=== PATIENT | male | born 2000 | race Caucasian/White ===

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

== ENCOUNTER 2020-10-06 13:37 | Inpatient (IN) | payer BC, OTHER ==
[2020-10-06 13:54] LABS: Glucose,Whole Blood >600 mg/dL (75-99)
[2020-10-06] MEDS ORDERED: SODIUM CHLORIDE 0.9% 2,000 ML IV ONE (13:55)
--- NOTE | 2020-10-06 14:15 | ED ---
General Adult HPI - General Source: patient, family, RN notes reviewed Mode of arrival: ambulatory Limitations: no limitations <Jun Yusuf - Last Filed: 10/06/20 14:14> <Amol Johnson - Last Filed: 10/06/20 16:02> - General Chief complaint: Shortness of Breath Stated complaint: weakness Time Seen by Provider: 10/06/20 13:55 - History of Present Illness Initial comments: This is a 20-year-old male presents emergency Department chief complaint of abdominal pain, nausea vomiting, increased bleeding. Patient states that he has not been able checked his blood sugar and almost 16 hours. Patient states that he is a type I diabetic. He has never had DKA states is only minimally when his first diagnosed with diabetes. Patient does have an insulin pump on he states feeling himself 4 units of insulin earlier today. Patient states his glucometer read high at this point. Patient states is very thirsty, no sick contacts no reported fever. (Jun Yusuf) - Related Data Home Medications Medication Instructions Recorded Confirmed INSULIN ASPART (NovoLOG) [NovoLOG] See Protocol SQ AC-TID 08/05/16 08/05/16 Insulin Glargine [Lantus] 20 unit SQ DAILY 08/05/16 08/05/16 Naproxen Sodium [Aleve] 220 mg PO DAILY PRN 08/05/16 08/05/16 Previous Rx's Medication Instructions Recorded Polymyxin B-Trimeth Sulf Ophth 1 drops RIGHT EYE Q4H 10 Days ml 08/05/16 [Polytrim Opthalmic] Allergies Allergy/AdvReac Type Severity Reaction Status Date / Time No Known Allergies Allergy Verified 10/06/20 13:46 Review of Systems ROS Other: All systems not noted in ROS Statement are negative. <Jun Yusuf - Last Filed: 10/06/20 14:14> ROS Other: All systems not noted in ROS Statement are negative. <Amol Johnson - Last Filed: 10/06/20 16:02> ROS Statement: Those systems with pertinent positive or pertinent negative responses have been documented in the HPI. Past Medical History Past Medical History: Diabetes Mellitus History of Any Multi-Drug Resistant Organisms: None Reported Past Surgical History: No Surgical Hx Reported Past Anesthesia/Blood Transfusion Reactions: No Reported Reaction Past Psychological History: No Psychological Hx Reported Smoking Status: Current every day smoker Past Alcohol Use History: None Reported, Occasional Past Drug Use History: None Reported - Past Family History Father Family Medical History: No Reported History Additional Family Medical History / Comment(s): Materal Grandmother CAD. Paternal Great Grandfather -DM <Jun Yusuf - Last Filed: 10/06/20 14:14> General Exam Limitations: no limitations General appearance: alert, in no apparent distress Head exam: Present: atraumatic, normocephalic, normal inspection Eye exam: Present: normal appearance, PERRL, EOMI. Absent: scleral icterus, conjunctival injection, periorbital swelling ENT exam: Present: normal exam, normal oropharynx, mucous membranes moist Neck exam: Present: normal inspection, full ROM. Absent: tenderness, meningismus, lymphadenopathy Respiratory exam: Present: normal lung sounds bilaterally. Absent: respiratory distress, wheezes, rales, rhonchi, stridor Cardiovascular Exam: Present: normal rhythm, tachycardia, normal heart sounds. Absent: regular rate, systolic murmur, diastolic murmur, rubs, gallop, clicks GI/Abdominal exam: Present: soft, tenderness, normal bowel sounds. Absent: distended, guarding, rebound, rigid Neurological exam: Present: alert Skin exam: Present: warm, dry, intact, normal color. Absent: rash <Jun Yusuf - Last Filed: 10/06/20 14:14> Course Vital Signs 10/06/20 13:46 Temperature 98.3 F Pulse Rate 132 H Respiratory 18 Rate Blood Pressure 120/62 O2 Sat by Pulse 98 Oximetry Medical Decision Making - Lab Data Result diagrams: 10/06/20 14:11 10/06/20 14:11 - Radiology Data Radiology results: image reviewed <Amol Johnson - Last Filed: 10/06/20 16:02> - Medical Decision Making Patient reevaluated and reexamined by myself, Dr. Johnson. Patient and family updated on results and plan. I do agree with PAs findings. This includes diagnostic interpretation and treatment plan. Case was discussed with Dr. Bui, who will admit covering for Dr. Peralta. Dr. Aleman has been paged (Amol Johnson) - Lab Data Lab Results 10/06/20 10/06/20 10/06/20 Range/Units 13:50 14:11 14:11 WBC 32.8 H (3.8-10.6) k/uL RBC 5.22 (4.30-5.90) m/uL Hgb 17.4 (13.0-17.5) gm/dL Hct 51.1 (39.0-53.0) % MCV 98.0 (80.0-100.0) fL MCH 33.3 (25.0-35.0) pg MCHC 34.0 (31.0-37.0) g/dL RDW 12.8 (11.5-15.5) % Plt Count 457 H (150-450) k/uL MPV 8.1 Neutrophils % Not Reportable Neutrophils % (Manual) 82 % Lymphocytes % Not Reportable Lymphocytes % (Manual) 12 % Monocytes % Not Reportable Monocytes % (Manual) 6 % Eosinophils % Not Reportable Basophils % Not Reportable Myelocytes % 1 % Neutrophils # Not Reportable Neutrophils # (Manual) 26.90 H (1.3-7.7) k/uL Lymphocytes # Not Reportable Lymphocytes # (Manual) 3.94 (1.0-4.8) k/uL Monocytes # Not Reportable Monocytes # (Manual) 1.97 H (0-1.0) k/uL Eosinophils # Not Reportable Basophils # Not Reportable Myelocytes # (Manual) 0.33 H (0) k/uL Nucleated RBCs 0 (0-0) /100 WBC Manual Slide Review Performed RBC Morphology Normal VBG pH (7.31-7.41) VBG pCO2 (37-51) mmHg VBG HCO3 (24-28) mmol/L Sodium (137-145) mmol/L Potassium (3.5-5.1) mmol/L Chloride (98-107) mmol/L Carbon Dioxide (22-30) mmol/L Anion Gap mmol/L BUN (9-20) mg/dL Creatinine (0.66-1.25) mg/dL Est GFR (CKD-EPI)AfAm (>60 ml/min/1.73 sqM) Est GFR (CKD-EPI)NonAf (>60 ml/min/1.73 sqM) Glucose (74-99) mg/dL POC Glucose (mg/dL) >600 H (75-99) mg/dL POC Glu Pen Tester Ken Craig Plasma Lactic Acid Bear (0.7-2.0) mmol/L Calcium (8.4-10.2) mg/dL Magnesium (1.6-2.3) mg/dL Total Bilirubin (0.2-1.3) mg/dL AST (17-59) U/L ALT (4-49) U/L Alkaline Phosphatase (38-126) U/L Total Protein (6.3-8.2) g/dL Albumin (3.5-5.0) g/dL Urine Color Light Yellow Urine Appearance Clear (Clear) Urine pH 5.0 (5.0-8.0) Ur Specific [place] 1.026 (1.001-1.035) Urine Protein 1+ H (Negative) Urine Glucose (UA) 4+ H (Negative) Urine Ketones 4+ H (Negative) Urine Blood Negative (Negative) Urine Nitrite Negative (Negative) Urine Bilirubin Negative (Negative) Urine Urobilinogen <2.0 (<2.0) mg/dL Ur Leukocyte Esterase Negative (Negative) Urine RBC <1 (0-5) /hpf Urine WBC 1 (0-5) /hpf Acetone, Qual (Negative) 10/06/20 10/06/20 10/06/20 Range/Units 14:11 14:11 14:11 WBC (3.8-10.6) k/uL RBC (4.30-5.90) m/uL Hgb (13.0-17.5) gm/dL Hct (39.0-53.0) % MCV (80.0-100.0) fL MCH (25.0-35.0) pg MCHC (31.0-37.0) g/dL RDW (11.5-15.5) % Plt Count (150-450) k/uL MPV Neutrophils % Neutrophils % (Manual) % Lymphocytes % Lymphocytes % (Manual) % Monocytes % Monocytes % (Manual) % Eosinophils % Basophils % Myelocytes % % Neutrophils # Neutrophils # (Manual) (1.3-7.7) k/uL Lymphocytes # Lymphocytes # (Manual) (1.0-4.8) k/uL Monocytes # Monocytes # (Manual) (0-1.0) k/uL Eosinophils # Basophils # Myelocytes # (Manual) (0) k/uL Nucleated RBCs (0-0) /100 WBC Manual Slide Review RBC Morphology VBG pH 7.06 L* (7.31-7.41) VBG pCO2 21 L (37-51) mmHg VBG HCO3 6 L* (24-28) mmol/L Sodium 135 L (137-145) mmol/L Potassium 5.8 H (3.5-5.1) mmol/L Chloride 95 L (98-107) mmol/L Carbon Dioxide <5 L* (22-30) mmol/L Anion Gap mmol/L BUN 19 (9-20) mg/dL Creatinine 1.41 H (0.66-1.25) mg/dL Est GFR (CKD-EPI)AfAm 82 (>60 ml/min/1.73 sqM) Est GFR (CKD-EPI)NonAf 71 (>60 ml/min/1.73 sqM) Glucose 577 H* (74-99) mg/dL POC Glucose (mg/dL) (75-99) mg/dL POC Glu Pen Tester ID Plasma Lactic Acid Bear 5.4 H* (0.7-2.0) mmol/L Calcium 10.5 H (8.4-10.2) mg/dL Magnesium 2.1 (1.6-2.3) mg/dL Total Bilirubin 0.9 (0.2-1.3) mg/dL AST 43 (17-59) U/L ALT 31 (4-49) U/L Alkaline Phosphatase 174 H (38-126) U/L Total Protein 8.3 H (6.3-8.2) g/dL Albumin 5.4 H (3.5-5.0) g/dL Urine Color Urine Appearance (Clear) Urine pH (5.0-8.0) Ur Specific [place] (1.001-1.035) Urine Protein (Negative) Urine Glucose (UA) (Negative) Urine Ketones (Negative) Urine Blood (Negative) Urine Nitrite (Negative) Urine Bilirubin (Negative) Urine Urobilinogen (<2.0) mg/dL Ur Leukocyte Esterase (Negative) Urine RBC (0-5) /hpf Urine WBC (0-5) /hpf Acetone, Qual Positive (Negative) Critical Care Time Critical Care Time: Yes Total Critical Care Time: 31 <Amol Johnson - Last Filed: 10/06/20 16:02> Disposition <Jun Yusuf - Last Filed: 10/06/20 14:14> Is patient prescribed a controlled substance at d/c from ED?: No Decision Time: 16:02 <Amol Johnson - Last Filed: 10/06/20 16:02> Clinical Impression: Diabetic ketoacidosis Disposition: ADMITTED IP TO THIS HOSP Condition: Serious Referrals: Lillie Peralta MD [Primary Care Provider] - 1-2 days
[2020-10-06 14:34] LABS: ALT 31 U/L (4-49); AST 43 U/L (17-59); African American GFR (CKD) 82 (>60 ml/min/1.73 sqM); Albumin 5.4 g/dL (3.5-5.0); Alkaline Phosphatase 174 U/L (38-126); Blood Urea Nitrogen 19 mg/dL (9-20); Calcium 10.5 mg/dL (8.4-10.2); Chloride 95 mmol/L (98-107); Magnesium 2.1 mg/dL (1.6-2.3); Non-African American GFR(CKD) 71 (>60 ml/min/1.73 sqM); Potassium 5.8 mmol/L (3.5-5.1); Sodium 135 mmol/L (137-145); Total Bilirubin 0.9 mg/dL (0.2-1.3); Total Protein 8.3 g/dL (6.3-8.2)
[2020-10-06 14:44] LABS: HCT 51.1 % (39.0-53.0); HGB 17.4 gm/dL (13.0-17.5); MCH 33.3 pg (25.0-35.0); Mean Platelet Volume 8.1; Platelet Count 457 k/uL (150-450); RBC 5.22 m/uL (4.30-5.90); RDW 12.8 % (11.5-15.5)
[2020-10-06 14:45] LABS: Appearance,Urine Clear (Clear); Bilirubin,Urine Negative (Negative); Blood,Urine Negative (Negative); Color,Urine Light Yellow; Glucose,Urine (UA) 4+ (Negative); Leukocyte Esterase,Urine Negative (Negative); Nitrite,Urine Negative (Negative); Protein,Urine 1+ (Negative); RBC,Urine <1 /hpf (0-5); Specific Gravity,Urine 1.026 (1.001-1.035); Urobilinogen,Urine <2.0 mg/dL (<2.0); WBC,Urine 1 /hpf (0-5)
[2020-10-06 14:47] LABS: WBC 32.8 k/uL (3.8-10.6)
[2020-10-06 14:50] LABS: Carbon Dioxide <5 mmol/L (22-30); Glucose 577 mg/dL (74-99)
[2020-10-06] MEDS ORDERED: INSULIN REGULAR BOLUS (FROM DRIP BAG) IV ONE (14:50)
[2020-10-06] MEDS ORDERED: ONDANSETRON 4 MG/2 ML VIAL IVP STA (14:50)
[2020-10-06 14:54] LABS: Ketones,Urine 4+ (Negative)
[2020-10-06 15:04] LABS: VBG PH 7.06 (7.31-7.41)
[2020-10-06 15:16] LABS: Lymphocytes # (M) 3.94 k/uL (1.0-4.8); Monocytes # (M) 1.97 k/uL (0-1.0); Myelocytes # (M) 0.33 k/uL (0); Myelocytes % 1 %; Neutrophils % (M) 82 %; Nucleated Red Blood Cells 0 /100 WBC (0-0); Total Cells Counted 200
[2020-10-06] MEDS: INSULIN REGULAR 100 UNIT in SODIUM CHLORIDE 0.9% 100 ML IV SCH (15:20)
[2020-10-06] MEDS: SODIUM CHLORIDE 0.9% 1,000 ML IV SCH (15:24)
[2020-10-06] MEDS ORDERED: NALOXONE 0.4 MG/ML 1 ML VIAL IV PRN (16:04)
--- NOTE | 2020-10-06 16:04 | XR ---
EXAMINATION TYPE: XR chest 1V portable DATE OF EXAM: 10/06/2020 COMPARISON: NONE HISTORY: Nausea and vomiting TECHNIQUE: Single view FINDINGS: Heart and mediastinum are normal. Lungs are clear. Diaphragm is normal. Bony thorax appears normal. IMPRESSION: Normal chest
[2020-10-06] MEDS ORDERED: ONDANSETRON 4 MG/2 ML VIAL IVP PRN (16:05)
[2020-10-06 16:23] LABS: Glucose,Whole Blood 369 mg/dL (75-99)
[2020-10-06 17:18] LABS: Glucose,Whole Blood 268 mg/dL (75-99)
[2020-10-06 17:22] LABS: African American GFR (CKD) >90 (>60 ml/min/1.73 sqM); Blood Urea Nitrogen 17 mg/dL (9-20); Chloride 105 mmol/L (98-107); Glucose 300 mg/dL (74-99); Non-African American GFR(CKD) >90 (>60 ml/min/1.73 sqM); Phosphorus 4.9 mg/dL (2.5-4.5); Potassium 4.6 mmol/L (3.5-5.1); Sodium 136 mmol/L (137-145)
[2020-10-06 17:31] LABS: Carbon Dioxide <5 mmol/L (22-30)
[2020-10-06] MEDS: D5-0.45% NACL WITH KCL 20MEQ/L 1,000 ML IV SCH (17:42)
[2020-10-06 18:28] LABS: Glucose,Whole Blood 229 mg/dL (75-99)
[2020-10-06 19:32] LABS: Glucose,Whole Blood 185 mg/dL (75-99)
[2020-10-06 20:24] LABS: Glucose,Whole Blood 206 mg/dL (75-99)
[2020-10-06 20:33] LABS: African American GFR (CKD) >90 (>60 ml/min/1.73 sqM); Anion Gap 24 mmol/L; Blood Urea Nitrogen 14 mg/dL (9-20); Chloride 106 mmol/L (98-107); Glucose 194 mg/dL (74-99); Non-African American GFR(CKD) >90 (>60 ml/min/1.73 sqM); Phosphorus 2.3 mg/dL (2.5-4.5); Potassium 4.5 mmol/L (3.5-5.1); Sodium 135 mmol/L (137-145)
[2020-10-06 20:34] LABS: Carbon Dioxide 5 mmol/L (22-30)
[2020-10-06 21:12] LABS: Glucose,Whole Blood 185 mg/dL (75-99)
[2020-10-06 22:17] LABS: Glucose,Whole Blood 180 mg/dL (75-99)
[2020-10-06 23:13] LABS: Glucose,Whole Blood 182 mg/dL (75-99)
[2020-10-06 23:41] LABS: Basophils % (A) 0 %; Eosinophils % (A) 0 %; HCT 43.8 % (39.0-53.0); HGB 15.1 gm/dL (13.0-17.5); Lymphocytes % (A) 11 %; MCH 32.5 pg (25.0-35.0); MCHC 34.4 g/dL (31.0-37.0); MCV 94.5 fL (80.0-100.0); Mean Platelet Volume 7.5; Monocytes # (A) 0.8 k/uL (0-1.0); Monocytes % (A) 4 %; Neutrophils # (A) 15.2 k/uL (1.3-7.7); Neutrophils % (A) 83 %; Platelet Count 311 k/uL (150-450); Poikilocytosis Slight; RBC 4.64 m/uL (4.30-5.90); RDW 14.1 % (11.5-15.5); WBC 18.3 k/uL (3.8-10.6)
--- NOTE | 2020-10-06 23:46 | P.HPIM ---
History of Present Illness H&P Date: 10/06/20 Patient is a 20-year-old male with a known history of diabetes type 1 currently on insulin pump, everyday smoker and occasional alcohol use presents to ER with complaints of intractable nausea and vomiting and mild abdominal discomfort. Patient has been diagnosed with diabetes type 1 about 6 years ago. Currently on insulin pump. No history of prior DKA. Patient states that he has been feeling weak for the last couple of weeks and has been having increased thirst and polyuria. Patient has not been able to check his blood sugar and almost 16 hours. Denied any complaints of cough or sputum production. No fever no chills, no Diarrhea. No complaints of chest pain or shortness of breath. Laboratory data showed WBC 32.8, hemoglobin 17.4 and platelets 457 Venous blood gases showed pH 7.06, PCO2 21 and bicarb is six Sodium 135 potassium 5.8 chloride 95 bicarb less than five BUN 19 and creatinine 1.4 Blood sugar is 577 lactic acid 5.4 calcium 10.5 Urinalysis is negative for infection. 4+ glucose and 4+ ketones Chest x-ray showed no acute cardiopulmonary EKG showed sinus tachycardia. Past Medical History Past Medical History: Diabetes Mellitus History of Any Multi-Drug Resistant Organisms: None Reported Past Surgical History: No Surgical Hx Reported Past Anesthesia/Blood Transfusion Reactions: No Reported Reaction Past Psychological History: No Psychological Hx Reported Smoking Status: Current every day smoker Past Alcohol Use History: None Reported, Occasional Past Drug Use History: None Reported - Past Family History Father Family Medical History: No Reported History Additional Family Medical History / Comment(s): Materal Grandmother CAD. Paternal Great Grandfather -DM Medications and Allergies Home Medications Medication Instructions Recorded Confirmed Type Insulin Aspart (For Pump) [NovoLOG 0.01 unit SQ-PUMP CONTINUOUS 10/06/20 10/06/20 History (For Pump)] Allergies Allergy/AdvReac Type Severity Reaction Status Date / Time No Known Allergies Allergy Verified 10/06/20 16:23 Physical Exam Vitals: Vital Signs Temp Pulse Resp BP Pulse Ox 10/06/20 16:35 125 H 21 119/72 100 10/06/20 13:46 98.3 F 132 H 18 120/62 98 Intake and Output 10/06/20 10/06/20 10/06/20 06:59 14:59 22:59 Intake Total 21.538 Balance 21.538 Intake: Intake, IV Titration Amount Insulin Regular 100 unit .538 In Sodium Chloride 0.9% 100 ml @ 0.1 UNITS/KG/HR 8.704 mls/hr IV .[id number] [facility] Rx#:[id number] Other: Weight 86.183 kg Results CBC & Chem 7: 10/06/20 23:19 10/06/20 19:46 Labs: Abnormal Lab Results - Last 24 Hours (Table) 10/06/20 10/06/20 10/06/20 Range/Units 13:50 14:11 14:11 WBC 32.8 H (3.8-10.6) k/uL Plt Count 457 H (150-450) k/uL Neutrophils # (Manual) 26.90 H (1.3-7.7) k/uL Monocytes # (Manual) 1.97 H (0-1.0) k/uL Myelocytes # (Manual) 0.33 H (0) k/uL VBG pH (7.31-7.41) VBG pCO2 (37-51) mmHg VBG HCO3 (24-28) mmol/L Sodium (137-145) mmol/L Potassium (3.5-5.1) mmol/L Chloride (98-107) mmol/L Carbon Dioxide (22-30) mmol/L Creatinine (0.66-1.25) mg/dL Glucose (74-99) mg/dL POC Glucose (mg/dL) >600 H (75-99) mg/dL Plasma Lactic Acid Bear (0.7-2.0) mmol/L Calcium (8.4-10.2) mg/dL Phosphorus (2.5-4.5) mg/dL Alkaline Phosphatase (38-126) U/L Total Protein (6.3-8.2) g/dL Albumin (3.5-5.0) g/dL Urine Protein 1+ H (Negative) Urine Glucose (UA) 4+ H (Negative) Urine Ketones 4+ H (Negative) 10/06/20 10/06/20 10/06/20 Range/Units 14:11 14:11 14:11 WBC (3.8-10.6) k/uL Plt Count (150-450) k/uL Neutrophils # (Manual) (1.3-7.7) k/uL Monocytes # (Manual) (0-1.0) k/uL Myelocytes # (Manual) (0) k/uL VBG pH 7.06 L* (7.31-7.41) VBG pCO2 21 L (37-51) mmHg VBG HCO3 6 L* (24-28) mmol/L Sodium 135 L (137-145) mmol/L Potassium 5.8 H (3.5-5.1) mmol/L Chloride 95 L (98-107) mmol/L Carbon Dioxide <5 L* (22-30) mmol/L Creatinine 1.41 H (0.66-1.25) mg/dL Glucose 577 H* (74-99) mg/dL POC Glucose (mg/dL) (75-99) mg/dL Plasma Lactic Acid Bear 5.4 H* (0.7-2.0) mmol/L Calcium 10.5 H (8.4-10.2) mg/dL Phosphorus (2.5-4.5) mg/dL Alkaline Phosphatase 174 H (38-126) U/L Total Protein 8.3 H (6.3-8.2) g/dL Albumin 5.4 H (3.5-5.0) g/dL Urine Protein (Negative) Urine Glucose (UA) (Negative) Urine Ketones (Negative) 10/06/20 10/06/20 10/06/20 Range/Units 16:21 16:55 16:55 WBC (3.8-10.6) k/uL Plt Count (150-450) k/uL Neutrophils # (Manual) (1.3-7.7) k/uL Monocytes # (Manual) (0-1.0) k/uL Myelocytes # (Manual) (0) k/uL VBG pH (7.31-7.41) VBG pCO2 (37-51) mmHg VBG HCO3 (24-28) mmol/L Sodium 136 L (137-145) mmol/L Potassium (3.5-5.1) mmol/L Chloride (98-107) mmol/L Carbon Dioxide <5 L* (22-30) mmol/L Creatinine (0.66-1.25) mg/dL Glucose 300 H (74-99) mg/dL POC Glucose (mg/dL) 369 H (75-99) mg/dL Plasma Lactic Acid Bear 2.3 H* (0.7-2.0) mmol/L Calcium (8.4-10.2) mg/dL Phosphorus 4.9 H (2.5-4.5) mg/dL Alkaline Phosphatase (38-126) U/L Total Protein (6.3-8.2) g/dL Albumin (3.5-5.0) g/dL Urine Protein (Negative) Urine Glucose (UA) (Negative) Urine Ketones (Negative) 10/06/20 Range/Units 17:17 WBC (3.8-10.6) k/uL Plt Count (150-450) k/uL Neutrophils # (Manual) (1.3-7.7) k/uL Monocytes # (Manual) (0-1.0) k/uL Myelocytes # (Manual) (0) k/uL VBG pH (7.31-7.41) VBG pCO2 (37-51) mmHg VBG HCO3 (24-28) mmol/L Sodium (137-145) mmol/L Potassium (3.5-5.1) mmol/L Chloride (98-107) mmol/L Carbon Dioxide (22-30) mmol/L Creatinine (0.66-1.25) mg/dL Glucose (74-99) mg/dL POC Glucose (mg/dL) 268 H (75-99) mg/dL Plasma Lactic Acid Bear (0.7-2.0) mmol/L Calcium (8.4-10.2) mg/dL Phosphorus (2.5-4.5) mg/dL Alkaline Phosphatase (38-126) U/L Total Protein (6.3-8.2) g/dL Albumin (3.5-5.0) g/dL Urine Protein (Negative) Urine Glucose (UA) (Negative) Urine Ketones (Negative) Assessment and Plan Assessment: Acute diabetic ketoacidosis Intractable nausea vomiting abdominal discomfort Anion gap metabolic acidosis Hyperkalemia secondary acidosis Acute kidney injury likely prerenal Lactic acidosis Significant leukocytosis likely reactive no evidence of infection at this time. Diabetes type 1 currently on insulin pump DVT prophylaxis with early ambulation. Plan: Patient regarding insulin drip at 8 units/h. Continue with IV hydration with normal saline and continue to monitor electrolytes every 4 hours. Symptomatic management for nausea and vomiting. Continue with PPI Chest x-ray and UA negative for infection. Follow-up culture reports. Leukocytosis trending down. Continue to follow closely. Discussed with his family at bedside in detail. Time with Patient: Greater than 30
[2020-10-06 23:59] LABS: Glucose,Whole Blood 166 mg/dL (75-99)
[2020-10-07 00:22] LABS: ALT 24 U/L (4-49); AST 24 U/L (17-59); African American GFR (CKD) >90 (>60 ml/min/1.73 sqM); Albumin 3.9 g/dL (3.5-5.0); Alkaline Phosphatase 91 U/L (38-126); Anion Gap 16 mmol/L; Blood Urea Nitrogen 14 mg/dL (9-20); Calcium 8.9 mg/dL (8.4-10.2); Carbon Dioxide 11 mmol/L (22-30); Chloride 107 mmol/L (98-107); Glucose 184 mg/dL (74-99); Magnesium 2.2 mg/dL (1.6-2.3); Non-African American GFR(CKD) >90 (>60 ml/min/1.73 sqM); Phosphorus 2.2 mg/dL (2.5-4.5); Potassium 4.3 mmol/L (3.5-5.1); Sodium 134 mmol/L (137-145); Total Protein 6.5 g/dL (6.3-8.2)
[2020-10-07] MEDS: INSULIN REGULAR 100 UNIT in SODIUM CHLORIDE 0.9% 100 ML IV SCH ×3 (00:24→23:45)
[2020-10-07] MEDS: D5-0.45% NACL WITH KCL 20MEQ/L 1,000 ML IV SCH ×3 (00:28→10:32)
[2020-10-07 01:09] LABS: Glucose,Whole Blood 156 mg/dL (75-99)
[2020-10-07 02:01] LABS: Glucose,Whole Blood 132 mg/dL (75-99)
[2020-10-07 03:05] LABS: Glucose,Whole Blood 147 mg/dL (75-99)
[2020-10-07 04:04] LABS: Glucose,Whole Blood 104 mg/dL (75-99)
[2020-10-07 04:15] LABS: Basophils % (A) 0 %; Eosinophils # (A) 0.1 k/uL (0-0.7); Eosinophils % (A) 1 %; HCT 42.3 % (39.0-53.0); HGB 14.7 gm/dL (13.0-17.5); Lymphocytes # (A) 2.5 k/uL (1.0-4.8); Lymphocytes % (A) 18 %; MCH 32.1 pg (25.0-35.0); MCHC 34.7 g/dL (31.0-37.0); MCV 92.7 fL (80.0-100.0); Mean Platelet Volume 7.3; Monocytes # (A) 0.9 k/uL (0-1.0); Monocytes % (A) 6 %; Neutrophils # (A) 10.3 k/uL (1.3-7.7); Neutrophils % (A) 73 %; Platelet Count 305 k/uL (150-450); RBC 4.56 m/uL (4.30-5.90); RDW 13.1 % (11.5-15.5); WBC 14.1 k/uL (3.8-10.6)
[2020-10-07 04:58] LABS: ALT 22 U/L (4-49); AST 21 U/L (17-59); African American GFR (CKD) >90 (>60 ml/min/1.73 sqM); Albumin 3.7 g/dL (3.5-5.0); Alkaline Phosphatase 87 U/L (38-126); Anion Gap 11 mmol/L; Blood Urea Nitrogen 14 mg/dL (9-20); Calcium 8.9 mg/dL (8.4-10.2); Carbon Dioxide 16 mmol/L (22-30); Chloride 110 mmol/L (98-107); Glucose 104 mg/dL (74-99); Non-African American GFR(CKD) >90 (>60 ml/min/1.73 sqM); Potassium 4.3 mmol/L (3.5-5.1); Sodium 137 mmol/L (137-145); Total Bilirubin 1.1 mg/dL (0.2-1.3); Total Protein 6.4 g/dL (6.3-8.2)
[2020-10-07 05:08] LABS: Glucose,Whole Blood 92 mg/dL (75-99)
[2020-10-07 06:08] LABS: Glucose,Whole Blood 90 mg/dL (75-99)
[2020-10-07 06:59] LABS: Glucose,Whole Blood 113 mg/dL (75-99)
[2020-10-07 08:27] LABS: African American GFR (CKD) >90 (>60 ml/min/1.73 sqM); Anion Gap 13 mmol/L; Blood Urea Nitrogen 13 mg/dL (9-20); Calcium 8.9 mg/dL (8.4-10.2); Carbon Dioxide 15 mmol/L (22-30); Chloride 107 mmol/L (98-107); Glucose 185 mg/dL (74-99); Non-African American GFR(CKD) >90 (>60 ml/min/1.73 sqM); Phosphorus 3.3 mg/dL (2.5-4.5); Potassium 4.4 mmol/L (3.5-5.1); Sodium 135 mmol/L (137-145)
[2020-10-07 08:28] LABS: Glucose,Whole Blood 230 mg/dL (75-99)
[2020-10-07] MEDS: PANTOPRAZOLE 40 MG/10 ML VIAL IV SCH (08:31)
--- NOTE | 2020-10-07 09:26 | P.CNPUL ---
History of Present Illness Consult date: 10/07/20 Chief complaint: Nausea, emesis, DKA History of present illness: At a pleasant 20-year-old boy, type I diabetic maintained on insulin pump with a basal rate of 1.35 units an hour along with history of smoking, developed complaints of intractable nausea and vomiting and some abdominal discomfort. He thinks that there could've been some issues with his insulin pump tubing. He woke up with those symptoms blood sugars were quite high. He was also having generalized weakness and increased thirst and polyuria. Over the past 24 hours prior to coming to the hospital, his condition got worse and the patient came in with a full blown DKA. He had a positive anion gap metabolic acidosis. His pH was at 7.06 on a venous sample, his blood work showed a serum bicarb level of 5 with a gap of 24. His blood sugar was 577. His lactic acid was at 5.4. EKG showed sinus tachycardia. Chest x-ray was negative. White cell count was at 32.8 with a hemoglobin of 17.4. The patient was given IV fluids and received a total of 2 L of IV fluids. He was started on insulin protocol for DKA. Overnight, he did well. He is serum bicarbonate gradually improved and currently is up to 15 and his most recent anion gap is a 13 and the patient is receiving currently D5 half-normal saline at the rate of 1 50 mL an hour and the most recent blood sugar is at 230. He is doing well. Is awake and alert. He is able to communicate and he is going to the bathroom independently. No tachycardia. No hypotension. No nausea no emesis. No chest pain. No altered mentation. He has a [employer] insulin pump for now. No other complications from his DKA. Review of Systems Constitutional: Denies chills, Denies fever Eyes: denies as per HPI, denies blurred vision, denies bulging eye, denies decreased vision, denies diplopia, denies discharge, denies dry eye, denies irritation, denies itching, denies pain, denies photophobia, denies loss of peripheral vision, denies loss of vision, denies tunnel vision/blind spots Ears: deny: decreased hearing, ear discharge, earache, tinnitus Ears, nose, mouth and throat: Reports as per HPI Breasts: absent: as per HPI, gynecomastia Cardiovascular: Reports as per HPI Respiratory: Reports as per HPI Gastrointestinal: Reports as per HPI Genitourinary: Reports as per HPI Musculoskeletal: Reports as per HPI Musculoskeletal: absent: ankle pain, ankle stiffness, ankle swelling, as per HPI, elbow pain, elbow stiffness, elbow swelling, foot pain, foot stiffness, foot swelling, hand pain, hand stiffness, hand swelling, hip pain, hip stiffness, hip swelling, knee pain, knee stiffness, knee swelling, shoulder pain, shoulder stiffness, shoulder swelling, wrist pain, wrist stiffness, wrist swelling Integumentary: Reports as per HPI Neurological: Reports as per HPI Endocrine: Reports excessive thirst, Reports fatigue, Reports high blood sugars Hematologic/Lymphatic: Reports as per HPI Allergic/Immunologic: Reports as per HPI Past Medical History Past Medical History: Diabetes Mellitus History of Any Multi-Drug Resistant Organisms: None Reported Past Surgical History: No Surgical Hx Reported Past Anesthesia/Blood Transfusion Reactions: No Reported Reaction Past Psychological History: No Psychological Hx Reported Smoking Status: Current some day smoker Past Alcohol Use History: None Reported, Occasional Past Drug Use History: None Reported - Past Family History Father Family Medical History: No Reported History Additional Family Medical History / Comment(s): Materal Grandmother CAD. Paternal Great Grandfather -DM Medications and Allergies Home Medications Medication Instructions Recorded Confirmed Type Insulin Aspart (For Pump) [NovoLOG 0.01 unit SQ-PUMP CONTINUOUS 10/06/20 10/06/20 History (For Pump)] Allergies Allergy/AdvReac Type Severity Reaction Status Date / Time No Known Allergies Allergy Verified 10/06/20 16:23 Physical Exam Vitals: Vital Signs Temp Pulse Resp BP Pulse Ox 10/07/20 08:00 97.8 F 85 14 104/74 98 10/07/20 07:00 91 18 115/64 94 L 10/07/20 06:00 83 14 106/59 97 10/07/20 05:00 79 15 110/71 10/07/20 04:00 97.8 F 87 20 110/77 96 10/07/20 03:00 103 H 17 118/77 96 10/07/20 02:00 101 H 16 107/73 97 10/07/20 01:00 100 17 119/68 96 10/07/20 00:30 99.2 F 101 H 19 119/68 97 10/07/20 00:22 103 H 15 08/28/21 23:58 99 18 110/68 98 10/06/20 18:49 114 H 20 101/61 99 10/06/20 16:35 125 H 21 119/72 100 10/06/20 13:46 98.3 F 132 H 18 120/62 98 Intake and Output 10/06/20 10/07/20 10/07/20 22:59 06:59 14:59 Intake Total 21.538 998.710 500 Output Total 0 Balance 21.538 998.710 500 Intake: IV 900 300 D5-0.45% NaCl with KCl 900 300 20Meq/l 1,000 ml @ 150 mls/hr IV .[id number] [facility] Rx# :[id number] Intake, IV Titration 21.538 98.710 Amount Insulin Regular 100 unit 21.538 98.710 In Sodium Chloride 0.9% 100 ml @ 0.1 UNITS/KG/HR 8.704 mls/hr IV .[id number] [facility] Rx#:[id number] Oral 200 Output: Urine 0 Other: Weight 79 kg The patient appeared well nourished and normally developed. Vital signs as documented. Head exam is unremarkable. No scleral icterus or corneal arcus noted. Neck is without jugular venous distension, thyromegaly, or carotid bruits. Carotid upstrokes are brisk bilaterally. Lungs are clear to auscultation and percussion. Cardiac exam reveals the PMI to be normally sized and situated. Rhythm is regular. First and second heart sounds normal. No murmurs, rubs or gallops. Abdominal exam reveals normal bowel sounds, no masses, no organomegaly and no aortic enlargement. Extremities are nonedematous and both femoral and pedal pulses are normal.Examination of the skin revealed no evidence of significant rashes, suspicious appearing nevi or other concerning lesions.Neurologically, the patient is awake and alert and the patient does not have any focal neurological deficit. Cranial nerves are essentially intact. Results - Laboratory Findings CBC and BMP: 10/07/20 04:00 10/07/20 07:43 Abnormal lab findings: Abnormal Labs 10/06/20 10/06/20 10/06/20 13:50 14:11 14:11 WBC 32.8 H Plt Count 457 H Neutrophils # Neutrophils # (Manual) 26.90 H Monocytes # (Manual) 1.97 H Myelocytes # (Manual) 0.33 H VBG pH VBG pCO2 VBG HCO3 Sodium Potassium Chloride Carbon Dioxide Creatinine Glucose POC Glucose (mg/dL) >600 H Plasma Lactic Acid Bear Calcium Phosphorus Alkaline Phosphatase Total Protein Albumin Urine Protein 1+ H Urine Glucose (UA) 4+ H Urine Ketones 4+ H 10/06/20 10/06/20 10/06/20 14:11 14:11 14:11 WBC Plt Count Neutrophils # Neutrophils # (Manual) Monocytes # (Manual) Myelocytes # (Manual) VBG pH 7.06 L* VBG pCO2 21 L VBG HCO3 6 L* Sodium 135 L Potassium 5.8 H Chloride 95 L Carbon Dioxide <5 L* Creatinine 1.41 H Glucose 577 H* POC Glucose (mg/dL) Plasma Lactic Acid Bear 5.4 H* Calcium 10.5 H Phosphorus Alkaline Phosphatase 174 H Total Protein 8.3 H Albumin 5.4 H Urine Protein Urine Glucose (UA) Urine Ketones 10/06/20 10/06/20 10/06/20 16:21 16:55 16:55 WBC Plt Count Neutrophils # Neutrophils # (Manual) Monocytes # (Manual) Myelocytes # (Manual) VBG pH VBG pCO2 VBG HCO3 Sodium 136 L Potassium Chloride Carbon Dioxide <5 L* Creatinine Glucose 300 H POC Glucose (mg/dL) 369 H Plasma Lactic Acid Bear 2.3 H* Calcium Phosphorus 4.9 H Alkaline Phosphatase Total Protein Albumin Urine Protein Urine Glucose (UA) Urine Ketones 10/06/20 10/06/20 10/06/20 17:17 18:27 19:31 WBC Plt Count Neutrophils # Neutrophils # (Manual) Monocytes # (Manual) Myelocytes # (Manual) VBG pH VBG pCO2 VBG HCO3 Sodium Potassium Chloride Carbon Dioxide Creatinine Glucose POC Glucose (mg/dL) 268 H 229 H 185 H Plasma Lactic Acid Bear Calcium Phosphorus Alkaline Phosphatase Total Protein Albumin Urine Protein Urine Glucose (UA) Urine Ketones 10/06/20 10/06/20 10/06/20 19:46 20:22 21:10 WBC Plt Count Neutrophils # Neutrophils # (Manual) Monocytes # (Manual) Myelocytes # (Manual) VBG pH VBG pCO2 VBG HCO3 Sodium 135 L Potassium Chloride Carbon Dioxide 5 L* Creatinine Glucose 194 H POC Glucose (mg/dL) 206 H 185 H Plasma Lactic Acid Bear Calcium Phosphorus 2.3 L Alkaline Phosphatase Total Protein Albumin Urine Protein Urine Glucose (UA) Urine Ketones 10/06/20 10/06/20 10/06/20 22:16 23:11 23:19 WBC Plt Count Neutrophils # Neutrophils # (Manual) Monocytes # (Manual) Myelocytes # (Manual) VBG pH VBG pCO2 VBG HCO3 Sodium 134 L Potassium Chloride Carbon Dioxide 11 L Creatinine Glucose 184 H POC Glucose (mg/dL) 180 H 182 H Plasma Lactic Acid Bear Calcium Phosphorus 2.2 L Alkaline Phosphatase Total Protein Albumin Urine Protein Urine Glucose (UA) Urine Ketones 10/06/20 10/06/20 10/07/20 23:19 23:57 01:08 WBC 18.3 H Plt Count Neutrophils # 15.2 H Neutrophils # (Manual) Monocytes # (Manual) Myelocytes # (Manual) VBG pH VBG pCO2 VBG HCO3 Sodium Potassium Chloride Carbon Dioxide Creatinine Glucose POC Glucose (mg/dL) 166 H 156 H Plasma Lactic Acid Bear Calcium Phosphorus Alkaline Phosphatase Total Protein Albumin Urine Protein Urine Glucose (UA) Urine Ketones 10/07/20 10/07/20 10/07/20 02:00 03:03 04:00 WBC 14.1 H Plt Count Neutrophils # 10.3 H Neutrophils # (Manual) Monocytes # (Manual) Myelocytes # (Manual) VBG pH VBG pCO2 VBG HCO3 Sodium Potassium Chloride Carbon Dioxide Creatinine Glucose POC Glucose (mg/dL) 132 H 147 H Plasma Lactic Acid Bear Calcium Phosphorus Alkaline Phosphatase Total Protein Albumin Urine Protein Urine Glucose (UA) Urine Ketones 10/07/20 10/07/20 10/07/20 04:00 04:03 06:57 WBC Plt Count Neutrophils # Neutrophils # (Manual) Monocytes # (Manual) Myelocytes # (Manual) VBG pH VBG pCO2 VBG HCO3 Sodium Potassium Chloride 110 H Carbon Dioxide 16 L Creatinine Glucose 104 H POC Glucose (mg/dL) 104 H 113 H Plasma Lactic Acid Bear Calcium Phosphorus Alkaline Phosphatase Total Protein Albumin Urine Protein Urine Glucose (UA) Urine Ketones 10/07/20 10/07/20 07:43 08:26 WBC Plt Count Neutrophils # Neutrophils # (Manual) Monocytes # (Manual) Myelocytes # (Manual) VBG pH VBG pCO2 VBG HCO3 Sodium 135 L Potassium Chloride Carbon Dioxide 15 L Creatinine Glucose 185 H POC Glucose (mg/dL) 230 H Plasma Lactic Acid Bear Calcium Phosphorus Alkaline Phosphatase Total Protein Albumin Urine Protein Urine Glucose (UA) Urine Ketones - Diagnostic Findings Chest x-ray: image reviewed Assessment and Plan Plan: 1 Acute diabetic ketoacidosis, possibly due to pump failure 2 anion gap metabolic acidosis secondary to above, recovering 3 nausea and emesis and abdominal pain, recovering and the patient is completely asymptomatic at this point in time 4 acute kidney injury secondary to above, improving 5 lactic acidosis secondary to above, improving 6 diabetes mellitus type 1 maintained on insulin pump with a basal rate of 1.35 units. The patient does not have any major complications of diabetes mellitus 7 Leukocytosis, improving Plan Anion gap is closing. Current insulin drip is running at 0.4 units an hour. The patient was able to tolerate diet. No nausea. No emesis. We are monitoring the blood sugar control. Most recent serum bicarb level is at 15 and anion gap is 13. I think within the next few hours, the patient will be completely closed. He will be switched back on his insulin pump and blood sugars will be monitored and the patient will be leaving ICU hopefully following that. No other issues for now. Electrolytes are stable. Leukocytosis that was noted is probably active and the white cell count is improving. Hemoglobin is stable. Liver function tests are normal. Chest x-ray is negative.
[2020-10-07 09:35] LABS: Glucose,Whole Blood 273 mg/dL (75-99)
[2020-10-07 11:22] LABS: Glucose,Whole Blood 289 mg/dL (75-99)
[2020-10-07 12:17] LABS: Glucose,Whole Blood 317 mg/dL (75-99)
[2020-10-07 13:07] LABS: Glucose,Whole Blood 275 mg/dL (75-99)
[2020-10-07 13:55] LABS: Glucose,Whole Blood 217 mg/dL (75-99)
[2020-10-07 14:09] LABS: Hemoglobin A1C 12.1 % (4.0-6.0)
[2020-10-07 15:12] LABS: Glucose,Whole Blood 192 mg/dL (75-99)
[2020-10-07 16:24] LABS: Glucose,Whole Blood 146 mg/dL (75-99)
[2020-10-07 16:59] LABS: African American GFR (CKD) >90 (>60 ml/min/1.73 sqM); Anion Gap 10 mmol/L; Blood Urea Nitrogen 15 mg/dL (9-20); Calcium 9.2 mg/dL (8.4-10.2); Carbon Dioxide 19 mmol/L (22-30); Chloride 107 mmol/L (98-107); Glucose 176 mg/dL (74-99); Non-African American GFR(CKD) >90 (>60 ml/min/1.73 sqM); Phosphorus 1.9 mg/dL (2.5-4.5); Potassium 3.8 mmol/L (3.5-5.1); Sodium 136 mmol/L (137-145)
[2020-10-07] MEDS ORDERED: Phosphorus Replacement Protoco 1 EACH MISC MISCELLANE PRN (17:16)
[2020-10-07] MEDS ORDERED: Potassium Replacement Protocol 1 EACH MISC MISCELLANE PRN (17:16)
[2020-10-07 17:27] LABS: Glucose,Whole Blood 195 mg/dL (75-99)
[2020-10-07] MEDS: SODIUM PHOSPHATE 10 MMOL in SODIUM CHLORIDE 0.9% 250 ML IVPB SCH ×2 (17:53→20:24)
[2020-10-07] MEDS ORDERED: POTASSIUM CHLORIDE ER 20 MEQ TAB.ER PO SCH (18:00)
[2020-10-07] MEDS ORDERED: INSULIN PUMP BASAL RATES 1 EACH MISC MISCELLANE PRN (18:10)
[2020-10-07] MEDS ORDERED: INSULIN ASPART (NovoLOG) 100 UNIT/ML VIAL SQ PRN (18:10)
[2020-10-07] MEDS ORDERED: INSPUCOR MISCELLANE PRN (18:10)
[2020-10-07] MEDS ORDERED: INSULIN PUMP MEAL BOLUS 1 UNIT MISC MISCELLANE SCH (21:00)
[2020-10-07 22:15] LABS: Glucose,Whole Blood 415 mg/dL (75-99)
[2020-10-07 22:37] LABS: Glucose,Whole Blood 459 mg/dL (75-99)
[2020-10-07] MEDS ORDERED: INSULIN REGULAR 100 UNIT/ML VIAL (IV) IV ONE (22:44)
[2020-10-07] MEDS ORDERED: INSULIN REGULAR BOLUS (FROM DRIP BAG) IV ONE (23:25)
[2020-10-08 00:24] LABS: Glucose,Whole Blood 474 mg/dL (75-99)
[2020-10-08 01:02] LABS: Glucose,Whole Blood 406 mg/dL (75-99)
[2020-10-08 01:35] LABS: Glucose,Whole Blood 345 mg/dL (75-99)
[2020-10-08 02:03] LABS: Glucose,Whole Blood 277 mg/dL (75-99)
[2020-10-08 02:34] LABS: Glucose,Whole Blood 209 mg/dL (75-99)
[2020-10-08] MEDS: INSULIN REGULAR 100 UNIT in SODIUM CHLORIDE 0.9% 100 ML IV SCH (02:42)
[2020-10-08 04:33] LABS: Glucose,Whole Blood 127 mg/dL (75-99)
[2020-10-08 06:09] LABS: Glucose,Whole Blood 174 mg/dL (75-99)
[2020-10-08] MEDS: SODIUM CHLORIDE 0.9% 1,000 ML IV SCH ×2 (07:49→08:03)
[2020-10-08] MEDS: PANTOPRAZOLE 40 MG/10 ML VIAL IV SCH (07:55)
[2020-10-08 08:02] LABS: Glucose,Whole Blood 137 mg/dL (75-99)
[2020-10-08 10:28] LABS: Glucose,Whole Blood 297 mg/dL (75-99)
[2020-10-08 12:13] LABS: Basophils # (A) 0.1 k/uL (0-0.2); Basophils % (A) 1 %; Eosinophils # (A) 0.1 k/uL (0-0.7); Eosinophils % (A) 1 %; HCT 46.4 % (39.0-53.0); HGB 15.8 gm/dL (13.0-17.5); Lymphocytes # (A) 2.1 k/uL (1.0-4.8); Lymphocytes % (A) 17 %; MCV 97.1 fL (80.0-100.0); Mean Platelet Volume 8.5; Monocytes # (A) 0.5 k/uL (0-1.0); Monocytes % (A) 5 %; Neutrophils # (A) 9.1 k/uL (1.3-7.7); Neutrophils % (A) 75 %; Platelet Count 283 k/uL (150-450); RBC 4.78 m/uL (4.30-5.90); RDW 13.2 % (11.5-15.5); WBC 12.1 k/uL (3.8-10.6)
[2020-10-08] MEDS ORDERED: INSULIN ASPART (NovoLOG) 100 UNIT/ML VIAL SQ ONE (12:23)
[2020-10-08 12:41] LABS: Glucose,Whole Blood 127 mg/dL (75-99)
[2020-10-08 12:52] LABS: African American GFR (CKD) >90 (>60 ml/min/1.73 sqM); Anion Gap 14 mmol/L; Blood Urea Nitrogen 18 mg/dL (9-20); Calcium 9.6 mg/dL (8.4-10.2); Carbon Dioxide 17 mmol/L (22-30); Chloride 107 mmol/L (98-107); Glucose 132 mg/dL (74-99); Non-African American GFR(CKD) >90 (>60 ml/min/1.73 sqM); Potassium 3.8 mmol/L (3.5-5.1); Sodium 138 mmol/L (137-145)
[2020-10-08] MEDS ORDERED: INSULIN DETEMIR (LEVEMIR) 100 UNIT/ML SYR SQ SCH (13:00)
[2020-10-08 13:08] VITALS: BMI 24.0
[2020-10-08 13:16] VITALS: BP 117/71; PULSE 84; RESP 16; TEMP 98.7
--- NOTE | 2020-10-08 14:09 | P.PN ---
Subjective Progress Note Date: 10/08/20 Principal diagnosis: Diabetic ketoacidosis. At a pleasant 20-year-old boy, type I diabetic maintained on insulin pump with a basal rate of 1.35 units an hour along with history of smoking, developed complaints of intractable nausea and vomiting and some abdominal discomfort. He thinks that there could've been some issues with his insulin pump tubing. He woke up with those symptoms blood sugars were quite high. He was also having generalized weakness and increased thirst and polyuria. Over the past 24 hours prior to coming to the hospital, his condition got worse and the patient came in with a full blown DKA. He had a positive anion gap metabolic acidosis. His pH was at 7.06 on a venous sample, his blood work showed a serum bicarb level of 5 with a gap of 24. His blood sugar was 577. His lactic acid was at 5.4. EKG showed sinus tachycardia. Chest x-ray was negative. White cell count was at 32.8 with a hemoglobin of 17.4. The patient was given IV fluids and received a total of 2 L of IV fluids. He was started on insulin protocol for DKA. Overnight, he did well. He is serum bicarbonate gradually improved and currently is up to 15 and his most recent anion gap is a 13 and the patient is receiving currently D5 half-normal saline at the rate of 1 50 mL an hour and the most recent blood sugar is at 230. He is doing well. Is awake and alert. He is able to communicate and he is going to the bathroom independently. No tachycardia. No hypotension. No nausea no emesis. No chest pain. No altered mentation. He has a Medtronic insulin pump for now. No other complications from his DKA. Progress note dated 10/08/2020. 20-year-old young man, with history of diabetes mellitus. He has type I disease. Currently, being maintained on a insulin pump. The patient was initially in the intensive care unit, and then moved out. He remains on IV insulin at 7 units an hour. Apparently his pump may not be functioning well. His bicarbonate concentration is 19. His anion gap is 10. The patient should be transitioned back to his insulin pump, and be discharged. Clinically he is doing well. He has no major complaints. Chest x-ray was normal. Lab data includes a white count of 12.1, hemoglobin 15.8, hematocrit 46.4, platelet count 283,000. Sodium 138, potassium 3.8, chlorides 107, CO2 17, anion gap 14, BUN 18, and creatinine 0.87. Phosphorus is 2.4. Objective - Vital Signs Vital signs: Vital Signs Temp 98.7 F 10/08/20 12:36 Pulse 84 10/08/20 12:36 Resp 16 10/08/20 12:36 BP 117/71 10/08/20 12:36 Pulse Ox 96 10/08/20 12:36 Intake & Output 10/07/20 10/08/20 10/08/20 18:59 06:59 18:59 Intake Total 1538.863 109.000 22.275 Output Total 0 Balance 1538.863 109.000 22.275 Weight 78.2 kg 78.2 kg Intake: IV 1330 0.9 KVO 180 D5-0.45% NaCl with KCl 900 20Meq/l 1,000 ml @ 150 mls/hr IV .Q6H40M [facility] Rx# :[id number] Sodium Phosphate 10 mmol 250 In Sodium Chloride 0.9% 250 ml @ 125 mls/hr IVPB Q2H [facility] Rx#:[id number] Intake, IV Titration 8.863 109.000 22.275 Amount Insulin Regular 100 unit 8.863 In Sodium Chloride 0.9% 100 ml @ 0.1 UNITS/KG/HR 8.704 mls/hr IV .[id number] [facility] Rx#:[id number] Insulin Regular 100 unit 109.000 22.275 In Sodium Chloride 0.9% 100 ml @ Titrate IV .Q0M [facility] Rx#:[id number] Oral 200 Output: Urine 0 Other: Voiding Method Toilet Toilet Toilet # Voids 1 - Exam No acute distress, oriented 3. HEENT examination is grossly unremarkable. Neck supple. Full range of motion. No adenopathy thyromegaly or neck vein distention. Cardiovascular examination reveals regular rhythm rate. S1-S2 normal. No S3 or S4. No discernible murmur noted. Heart rate 84 bpm. Lungs reveal clear breath sounds. Breath sounds are equal bilaterally. No adventitious lung sounds including wheezes rhonchi or crackles. Room air saturation is 96%. Abdomen soft bowel sounds are heard. No masses or tenderness. Extremities are intact. No cyanosis clubbing or edema. Skin is without rash or lesion. Neurologic examination is brief but nonfocal. - Labs CBC & Chem 7: 10/08/20 04:36 10/08/20 04:36 Labs: Abnormal Lab Results - Last 24 Hours (Table) 10/07/20 10/07/20 10/07/20 Range/Units 04:00 15:10 15:57 WBC (3.8-10.6) k/uL Neutrophils # (1.3-7.7) k/uL Sodium 136 L (137-145) mmol/L Carbon Dioxide 19 L (22-30) mmol/L Glucose 176 H (74-99) mg/dL POC Glucose (mg/dL) 192 H (75-99) mg/dL Hemoglobin A1c 12.1 H (4.0-6.0) % Phosphorus 1.9 L (2.5-4.5) mg/dL 10/07/20 10/07/20 10/07/20 Range/Units 16:22 17:26 22:03 WBC (3.8-10.6) k/uL Neutrophils # (1.3-7.7) k/uL Sodium (137-145) mmol/L Carbon Dioxide (22-30) mmol/L Glucose (74-99) mg/dL POC Glucose (mg/dL) 146 H 195 H 415 H (75-99) mg/dL Hemoglobin A1c (4.0-6.0) % Phosphorus (2.5-4.5) mg/dL 10/07/20 10/08/20 10/08/20 Range/Units 22:35 00:22 01:00 WBC (3.8-10.6) k/uL Neutrophils # (1.3-7.7) k/uL Sodium (137-145) mmol/L Carbon Dioxide (22-30) mmol/L Glucose (74-99) mg/dL POC Glucose (mg/dL) 459 H 474 H 406 H (75-99) mg/dL Hemoglobin A1c (4.0-6.0) % Phosphorus (2.5-4.5) mg/dL 10/08/20 10/08/20 10/08/20 Range/Units 01:33 02:01 02:32 WBC (3.8-10.6) k/uL Neutrophils # (1.3-7.7) k/uL Sodium (137-145) mmol/L Carbon Dioxide (22-30) mmol/L Glucose (74-99) mg/dL POC Glucose (mg/dL) 345 H 277 H 209 H (75-99) mg/dL Hemoglobin A1c (4.0-6.0) % Phosphorus (2.5-4.5) mg/dL 10/08/20 10/08/20 10/08/20 Range/Units 04:31 04:36 04:36 WBC 12.1 H (3.8-10.6) k/uL Neutrophils # 9.1 H (1.3-7.7) k/uL Sodium (137-145) mmol/L Carbon Dioxide (22-30) mmol/L Glucose (74-99) mg/dL POC Glucose (mg/dL) 127 H (75-99) mg/dL Hemoglobin A1c (4.0-6.0) % Phosphorus 2.4 L (2.5-4.5) mg/dL 10/08/20 10/08/20 10/08/20 Range/Units 04:36 05:57 07:56 WBC (3.8-10.6) k/uL Neutrophils # (1.3-7.7) k/uL Sodium (137-145) mmol/L Carbon Dioxide 17 L (22-30) mmol/L Glucose 132 H (74-99) mg/dL POC Glucose (mg/dL) 174 H 137 H (75-99) mg/dL Hemoglobin A1c (4.0-6.0) % Phosphorus (2.5-4.5) mg/dL 10/08/20 10/08/20 Range/Units 10:17 12:40 WBC (3.8-10.6) k/uL Neutrophils # (1.3-7.7) k/uL Sodium (137-145) mmol/L Carbon Dioxide (22-30) mmol/L Glucose (74-99) mg/dL POC Glucose (mg/dL) 297 H 127 H (75-99) mg/dL Hemoglobin A1c (4.0-6.0) % Phosphorus (2.5-4.5) mg/dL Assessment and Plan Assessment: Acute diabetic ketoacidosis. Anion gap metabolic acidosis, secondary to DKA. Nausea/emesis/abdominal pain, resolved. Acute kidney injury. Lactic acidosis. Type 1 diabetes mellitus. Leukocytosis. Plan: Plan dated 10/08/2020. The patient should be transitioned back to his insulin pump. The patient is doing well otherwise. We'll see only as needed moving forward. No additional recommendations are made. The patient would like to be discharged. Once we get him off the IV insulin, he could be discharged. Additional recommendations and suggestions are forthcoming. Prognosis is thought to be very guarded. Time with Patient: Less than 30
[2020-10-08 14:47] LABS: Glucose,Whole Blood 291 mg/dL (75-99)
== END 2020-10-08 17:11 | disposition home or self-care (01) | DRG 638 ==
LOC: EC 13:37 → 2SICU 16:04 → 5NMEDONC 10-07 23:11
PROVIDERS: ADMIT Internal Medicine; ATTEND Internal Medicine
DX: E10.10 Type 1 diabetes mellitus with ketoacidosis without coma (principal); N17.9 Acute kidney failure, unspecified; E87.5 Hyperkalemia; D72.829 Elevated white blood cell count, unspecified; Z96.41 Presence of insulin pump (external) (internal); Z79.4 Long term (current) use of insulin; F17.200 Nicotine dependence, unspecified, uncomplicated; Z82.49 Family history of ischemic heart disease and other diseases of the circulatory system; Z83.3 Family history of diabetes mellitus
CPT/HCPCS: 36415; 71045; 80048; 80051; 80053; 81001; 82009; 82565; 82803; 82947; 83036; 83605; 83735; 84100; 84520; 85025; 93005; 96361; 96374; 99291